=== PATIENT | male | born 1945 | race Caucasian/White ===

== ENCOUNTER 2016-10-21 07:09 | Inpatient (IN) | payer MEDICARE, OTHER ==
[~2016-10-21] VITALS: Ht 170.2 cm; Wt 120.0 kg
--- NOTE | ~2016-10-21 | ECH ---
Transthoracic Echocardiography Report (TTE) Demographics Patient Name RICO JAY Date of Study 10/23/2016 Patient Number [id number] Visit Number [id number] Date of 1945 Room Number 428 Accession Number [id number] Gender Male Age 70 year(s) Referring Nikhil Perez MD Bone Process Operator Cici Gomez Physician Kaitlin Sales RDCS, MD Physician Interpreting Mony COBIAN Padded Products Finisher Physician Jose Supervising Ordering Physician Nikhil Perez MD, MD/P Nurse Stress Drafter Structural Conclusions Contractility Score Summary Normal Left Ventricular contractility was noted. Summary Technically adequate exam. The estimated left ventricular ejection fraction is 60-65%. Mild concentric left ventricular hypertrophy. Trivial tricuspid regurgitation by color Doppler. There is mild pulmonary hypertension. The pulmonary pressure (RVSP) is 36 mmHg. Recommendation The patient was given the results of the exam during their hospital stay. Procedure Type of Study TTE procedure:Echo Complete SF. Procedure Date Date: 10/23/2016 Start: 08:24 Technical Quality: Adequate visualization Indications:Atrial Flutter, Hypertension and Diabetes. Appropriate Use Criteria: 9 Height: 67 inches Weight: 253 pounds BSA: 2.23 m Rhythm: Atrial flutter HR: 75 bpm BP: 128/72 mmHg M-Mode/2D Measurements LV Diastolic Dimension: 5.58 cm LV Systolic Dimension: 3.68 cm LV Septum Diastolic: 1.32 cm LV PW Diastolic: 1.31 cm AO Root Dimension: 2.95 cm Cardiac Output: 4.22 l/min LA Dimension: 3.9 cm Cardiac Index: 1.89 l/min*m RV Diastolic Dimension: 3.4 cm LA volume index: 22 ml/m LVOT: 2.1 cm LVOT VTI: 16.25 cm RV Base: 3.7 cm LV Stroke volume: 56.26 ml RV Mid: 2.2 cm LV Stroke volume index: 25.23 ml/m TAPSE: 1.8 cm TDI-S': 10 cm/s Doppler Measurements AV Peak Velocity: 1.6 m/s MV Peak E-Wave: 1.31 m/s AV Peak Gradient: 10.24 mmHg AV Mean Gradient: 5.91 mmHg MV P1/2t: 46.8 msec LVOT Peak Velocity: 0.85 m/s AV Area (Continuity):1.94 cm MV Area (PHT): 4.7 cm TR Velocity:2.85 m/s PV Peak Velocity: 0.85 m/s TR Gradient:32.53 mmHg PV Peak Gradient: 2.89 mmHg Estimated RAP:3 mmHg Estimated PASP: 35.53 mmHg Estimated RVSP: 36 mmHg E' Septal Velocity: 0.11 m/s E' Lateral Velocity: 0.11 m/s RA Area: 16.22 cm Findings Left Ventricle The left ventricle is normal in size . Mild concentric left ventricular hypertrophy. Diastolic function indeterminate due to patient's arrhythmia. Right Ventricle Normal right ventricle structure and function. Left Atrium Normal left atrial size. Right Atrium Normal right atrial size. Mitral Valve Normal mitral valve structure and function. Trivial mitral regurgitation by color Doppler. Aortic Valve Normal aortic valve structure and function. Tricuspid Valve Normal tricuspid valve structure and function. Trivial tricuspid regurgitation by color Doppler. There is mild pulmonary hypertension. The pulmonary pressure (RVSP) is 36 mmHg. Pulmonic Valve The pulmonic valve is not well visualized. Pericardial Effusion No evidence of pericardial effusion. Miscellaneous Visualized portions of the aortic root and ascending aorta appear normal in size. Pleural Effusion No evidence of pleural effusion. Contractility Score LV regional wall motion:(0-Non visualized 1-Normal 2-Hypokinesis 3-Akinesis 4-Dyskinesis 5-Aneurysm) Signature
--- NOTE | 2016-10-21 18:10 | ER ---
ADMIT: 10/21/2016 RM/LOC: 428 [facility] MR#: [id number] [id number] [place], [place] [address] JAY RICO Skye [address] [place] [address] Emergency Room Report SEX: M AGE: 70 : 1945 DATE: 10/21/2016 CHIEF COMPLAINT: Short of breath and chest pain. HISTORY OF PRESENT ILLNESS: The patient is a 70-year-old gentleman lives at home alone. He is wheelchair bound due to the fact he has had inclusion body myositis and has weakness in all 4 extremities, lower extremities worse than upper. He states that this morning he woke up, was feeling okay for a little while, but shortly after waking felt like he was lightheaded and noticed he was having some pressure in the center of his chest. He called EMS and was brought in for evaluation. He said he felt fine when he went to bed last night. He has not had any recent illness. REVIEW OF SYSTEMS: Ten-point review of systems done otherwise negative except as in HPI. PAST MEDICAL HISTORY: Significant for insulin-dependent diabetes, hypertension, hyperlipidemia, and inclusion body myositis. PAST SURGICAL HISTORY: Cholecystectomy. MEDICATIONS: See nurse's note. ALLERGIES: LISINOPRIL AND PENICILLIN. SOCIAL HISTORY: Lives at home alone. Does not smoke, drink, or use drugs. PHYSICAL EXAMINATION: See T-sheet. LABORATORY DATA: CBC shows hemoglobin 11.7, otherwise normal. Chemistries are normal. First set of cardiac enzymes was normal. BNP is 456. Chest x- ray shows nothing acute. EKG shows atrial flutter, rate of 74 with some PVCs. EMERGENCY DEPARTMENT COURSE: The patient was chest pain-free while in the ER ADMIT: 10/21/2016 RM/LOC: 428 [facility] MR#: [id number] [address] [address] RICO JAY [address] [place] [address] Emergency Room Report SEX: M AGE: 70 : 1945 but his EKG shows atrial flutter and I have reviewed numerous EKGs on the patient and there was no previous report of atrial fibrillation or atrial flutter in the past. The patient was still symptomatic with lightheadedness in the ER, but has not had any chest pain. At this point he will be brought in for further chest pain rule out, evaluation and management of his atrial flutter. I spoke to Dr. Preston as the patient normally sees Dr. Madrigal and the patient will be admitted for further workup. DIAGNOSES: 1. Chest pain. 2. Atrial flutter. 3. Lightheaded. Derrell Daley MD/ raymundo JOB #: [id number] CC: Barber Madrigal MD, Attending Physician Barber Madrigal MD, Family Physician
[2016-10-24] MEDS ORDERED: SIMETHICONE180 MG PO (14:14)
[2016-10-24] MEDS ORDERED: PRAVASTATIN SOD80 MG PO (14:14)
[2016-10-24] MEDS ORDERED: ZYLOPRIM-DPS300 MG PO (14:14)
[2016-10-24] MEDS ORDERED: DELTASONE DPS5 MG PO (14:15)
[2016-10-24] MEDS ORDERED: LEVOTHYROXINE100 MCG PO (14:15)
[2016-10-24] MEDS ORDERED: LASIX DPS40 MG PO (14:15)
[2016-10-24] MEDS ORDERED: ALENDRONATE SOD35 MG PO (14:15)
[2016-10-24] MEDS ORDERED: TYLENOL325 MG PO (14:16)
[2016-10-24] MEDS ORDERED: RA CALCIUM 6001 EAC1 PO (14:16)
[2016-10-24] MEDS ORDERED: VITAMIN D-32000 UNI1 PO (14:16)
[2016-10-24] MEDS ORDERED: NOVOLOG100 UNIT/2 SQ ×2 (14:18→14:22)
[2016-10-24] MEDS ORDERED: HUMULIN N100 UNIT/1 SQ (14:19)
[2016-10-24] MEDS ORDERED: METOPROLOL TART25 MG PO (14:19)
[2016-10-24] MEDS ORDERED: COZAAR DPS25 MG PO (14:19)
[2016-10-24] MEDS ORDERED: ELIQUIS5 MG PO (14:20)
[2016-10-24] MEDS ORDERED: ANTIVERT-DPS25 MG PO (14:20)
[2016-10-24] MEDS ORDERED: PRILOSEC DPS20 MG PO (14:20)
[2016-10-24] MEDS ORDERED: OMEGA-3 DPS1000 MG PO (14:20)
[2016-10-24] MEDS ORDERED: FLOMAX DPS0.4 MG PO (14:20)
--- NOTE | 2016-10-24 14:51 | NUR ---
Patient is a current [facility] patient.
--- NOTE | 2016-11-08 14:15 | CO ---
ADMIT: 10/21/2016 RM/LOC: 428 [facility] MR#: [id number] [address] [facility] [address] [place], [place] [address] RICO JAY [address] [place] [address] Consultation SEX: M AGE: 70 : 1945 DATE OF CONSULTATION: 10/21/2016 ATTENDING PHYSICIAN: Barber Madrigal MD CONSULTING PHYSICIAN: Padilla Tejeda MD REASON FOR CONSULTATION: Atrial flutter, near syncope. HISTORY OF PRESENT ILLNESS: Mr. Jay is a pleasant 70-year-old, white male who presents today to the ER with some lightheadedness and near syncope. He has never experienced any symptoms like this. He lives at home alone with a history of inclusion body myositis. He has no known history of coronary disease. There is no family history of coronary disease. He denies any palpitations or skipped beats. He denies any weight gain, weight loss. No fevers or chills. He is wheelchair-bound because of his myositis. PAST MEDICAL HISTORY: Includes inclusion body myositis and Davis's palsy. MEDICATIONS: Unknown at this time. ALLERGIES: INCLUDE PENICILLIN. FAMILY HISTORY: There is no family history of coronary disease to his knowledge. 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 He is a nonsmoker. Lives at home alone. REVIEW OF SYSTEMS: A full 10-point review of systems was obtained and deemed to be negative except for the pertinently dictated positive. PHYSICAL EXAMINATION: VITAL SIGNS: His blood pressure is 134/67 with a pulse rate in the 60s, temp is 97.1, his weight is 251 pounds. GENERAL: He is a pleasant, well-nourished, and well-developed white male, in no acute distress. Alert and oriented x3. NECK: Shows brisk carotid upstrokes. No JVD. No bruit. CHEST: Clear. HEART: Regular. ABDOMEN: Soft. EXTREMITIES: Showed no cyanosis, clubbing, edema. MUSCULOSKELETAL: Appears somewhat diminished range of motion because of his inclusion body myositis. Same with his neurologic status. LABORATORY AND ANCILLARY DATA: EKG today shows atrial flutter with variable block, but well rate controlled. His creatinine is 0.8, potassium 3.8, magnesium is 2.5. CK is 215, MB is 8.7, troponin is 0.02. ProBNP is 456. White ADMIT: 10/21/2016 RM/LOC: 428 [facility] MR#: [id number] [address] [address]ICO [address] [place] [address] Consultation SEX: M AGE: 70 : 1945 blood cell count of 8.9, hemoglobin 11.7, and a platelet count of 177,000. ASSESSMENT AND PLAN: 1. Atrial flutter, new diagnosis. 2. Inclusion body myositis. 3. Vertigo. 4. Obstructive sleep apnea. We will go ahead and continue to monitor his rate control right now. We will start him on anticoagulation. No need for AV leta agent as he is well rate controlled. Blood pressure is stable. We will get an echocardiogram with or without a potential cardioversion early this week depending on his symptoms and his rate control on tele. Padilla Tejeda MD/ raymundo JOB #: [id number] CC: Barber Madrigal MD, Attending Physician Barber Madrigal MD, Family Physician
--- NOTE | 2016-11-13 10:39 | HP ---
ADMIT: 10/21/2016 RM/LOC: 428 [facility] MR#: [id number] [address] [facility] [address] [place], [place] [address] RICO JAY [address] [place] [address] History and Physical SEX: M AGE: 70 : 1945 DATE OF SERVICE: CHIEF COMPLAINT: Dizziness and chest pain. HISTORY OF PRESENT ILLNESS: This is a 70-year-old male, who normally follows at the [facility] and with Dr. Barber Madrigal who presented to emergency room with dizziness and chest pain. He was in his usual state of health yesterday. He is living at home by himself, but does have some people come in and help him transfer. At any rate, he woke up at 6 o'clock this morning, had significant dizziness, which he described as true vertigo with a spinning sensation. It was worse when he looked in certain positions. Also at that time noted that he was having some substernal chest tightness. It did not radiate. It was not associated with shortness of breath but was associated with diaphoresis. Also, he was nauseated, he was dry heaving. This is not certain if this was secondary to chest pain or dizziness. At any rate, they called the squad who came in. Workup in the emergency room did reveal new onset atrial flutter. His 1st set of cardiac enzymes have been negative and his chest pain has been resolved. However, when they sat him up for a sip of water, he got extremely vertiginous again and then when I was being with him and did my exam looking in his ears, rotating his head, reproduced his vertigo as well. Because of the new onset of atrial fibrillation and severe dizziness, we are going to admit. PAST MEDICAL HISTORY: Remarkable for diabetes mellitus type 2, hypercholesterolemia, morbid obesity, inclusion body myositis, obstructive sleep apnea, BPH with urinary retention and now chronic indwelling Johnson catheter, hypothyroidism, and gastroesophageal reflux disease. PAST SURGICAL HISTORY: 1. Penile abscess drainage. 2. Cholecystectomy. 3. Knee arthroscopies. CURRENT MEDICATIONS: 1. Questran 4 g daily. 2. Simethicone 180 mg t.i.d. 3. Pravastatin 80 mg at bedtime. 4. Allopurinol 300 mg daily. 5. Furosemide 40 mg daily. 6. Levothyroxine 100 mg daily. 7. Prednisone 5 mg two tabs daily. 8. Alendronate 35 mg every week. 9. Aspirin 325 mg daily. 10.Acetaminophen 650 mg p.r.n. 11.Calcium daily. 12.Vitamin D 2 daily. 13.NovoLog uncertain dose. 14.Losartan 25 mg daily. 15.Metoprolol 25 mg b.i.d. ADMIT: 10/21/2016 RM/LOC: 428 [facility] MR#: [id number] [address] [address] [place] [address] History and Physical SEX: M AGE: 70 : 1945 16.Snyder-3 1000 mg daily. 17.Omeprazole 20 mg daily. 18.Tamsulosin 0.4 mg daily. ALLERGIES: ZESTRIL AND PENICILLIN. FAMILY HISTORY: Father of stomach cancer. Mother with diabetes at the age of 91. Sister with breast cancer. SOCIAL HISTORY: Does not smoke or drink alcohol. He lives alone. He could not bear weight. Cannot transfer, but he does have some friends who come in and help him transfer from bed to wheelchair. REVIEW OF SYSTEMS: GENERAL: No fevers or chills. HEENT: No headaches, blurry vision, or double vision. CARDIAC: He does have chest pain but no shortness of breath. PULMONARY: No shortness of breath. GI: No nausea, vomiting, does have chronic diarrhea. : No dysuria, urgency, or frequency. ENDOCRINE: No polyuria, polydipsia. PSYCH: No depression. INTEGUMENTARY: No new rashes. All others are negative. PHYSICAL EXAMINATION: VITAL SIGNS: Blood pressure is 147/88, pulse 75, respirations 18, he is afebrile, O2 saturation is 97% on room air. GENERAL: He is in no acute distress. He is alert, oriented. HEENT: Pupils are reactive. He does have nystagmus and TMs are clear bilateral without erythema or bulging. There is no cerumen. External pinnae are normal. Clear nasal mucosa. Clear oropharynx. Moist mucous membranes. NECK: Soft and supple. LUNGS: Clear to auscultation with normal respiratory effort. HEART: Irregular. ABDOMEN: Soft, it is nontender. EXTREMITIES: No cyanosis. No clubbing. SKIN: No rashes. NEUROLOGIC: Cranial nerves II through XII grossly intact except for the generalized weakness from his myositis. LAB AND X-RAY DATA: White count of 8900, hemoglobin 11.7, and platelets 177,000. Sodium 143, potassium 3.8, chloride 104, CO2 of 30, BUN 44, creatinine 0.8, glucose 111, calcium 8.8, total bilirubin is 0.5, total protein 6.7, albumin 3.4, alkaline phosphatase 65, AST 16, ALT 24, magnesium 2.5, CK 215, MB 8.7, relative index 4.0, troponin I is 0.02. ProBNP was 456. ADMIT: 10/21/2016 RM/LOC: 428 [facility] MR#: [id number] [address] [address] RICO JAY [facility] [place] [address] History and Physical SEX: M AGE: 70 : 1945 ASSESSMENT: 1. Chest pain. 2. New onset atrial flutter. 3. Vertigo. 4. Diabetes mellitus type 2. 5. Morbid obesity. 6. Inflammatory/inclusion body myositis. 7. Obstructive sleep apnea. 8. Urinary retention with chronic indwelling Johnson catheter. PLAN: He will be admitted to [facility]. We will check serial cardiac enzymes, IM Zofran and meclizine for the dizziness. BRIAN will be consulted. Segundo Preston MD/ raymundo JOB #: [id number] CC: Barber Madrigal MD, Attending Physician Barber Madrigal MD, Family Physician
--- NOTE | 2016-11-27 12:06 | DS ---
ADMIT: 10/21/2016 RM/LOC: 428 [facility] MR#: [id number] [address] [facility] [address] [place], [place] [address] RICO JAY [address] [place] [address] General Discharge Summary SEX: M AGE: 70 : 1945 ADMISSION DATE: 10/21/2016 DISCHARGE DATE: 10/23/2016 INDICATION FOR HOSPITALIZATION: Rico is a 70-year-old male who [facility], who is admitted to [facility] through the emergency room with chest pain and dizziness. ER assessment showed new-onset atrial fibrillation/flutter. Cardiac enzymes and routine labs were obtained, and he was admitted for further evaluation and management of new onset of atrial fibrillation with severe dizziness felt to be secondary to labyrinthitis by Dr. Preston on admission. Please see his admission H and P for further details regarding his history of present illness, past medical history, physical exam, and assessment at the time of hospitalization. HOSPITAL COURSE: On admission, Valium was ordered for his dizziness. IV fluids and antiemetics were ordered. EKGs, cardiac enzymes, Accu-Chek monitoring with sliding scale insulin, and routine labs were obtained. Additionally, meclizine was given routinely for his vertigo. His home diabetes cares were continued. [facility] was formally consulted given his chest pain and risk factors with his atrial fibrillation/flutter. He was initially placed on heparin drip and later switched to Eliquis. Echocardiogram was ordered. Cardiology rounded routinely. Aspirin was discontinued on October 23, and Cardiology felt it was okay to send him home, and he was discharged to home later that day. DISCHARGE MEDICATIONS: Please include a copy of his discharge medication list from his MAR at this place. Of note, he was on Eliquis 5 mg b.i.d., and aspirin was held. He was given Antivert for his labyrinthitis. FOLLOWUP AND DIET: He was to follow up with his [facility] provider in a week and continue with his diabetic diet. LABORATORY AND X-RAY DATA: Include; on October 21, white count 8.9, hemoglobin 11.4, and platelet count 177,000. On October 21, sodium 143, potassium 3.8, BUN 44, and creatinine 0.8 with glucose 111. AST of 16 and ALT of 24. Cholesterol on October 22 was 89 with triglycerides of 92, HDL 43, and LDL 28. CPKs were 215, 198, and 202 on October 21. MBs of 8.7, 10.1, and 9.1. Troponin I's were all normal at 0.020, 0.16, and 0.23. Sugars were monitored. Hemoglobin A1c on October 22 was 6.9. TSH was normal at 0.793. Chest x-ray on admission showed no acute changes. Echocardiogram on October 23 shows an ejection fraction of 60% to 65% with mild left ventricular hypertrophy and mild pulmonary hypertension. FINAL DISCHARGE DIAGNOSES: 1. New onset of atrial fibrillation/flutter. ADMIT: 10/21/2016 RM/LOC: 428 [facility] MR#: [id number] [address] [address] RICO JAY [address] [place] [address] General Discharge Summary SEX: M AGE: 70 : 1945 2. Mild left ventricular hypertrophy. 3. Labyrinthitis. 4. Diabetes mellitus type 2. 5. Atypical chest pain. 6. Morbid obesity. 7. Inclusion body myositis. 8. Obstructive sleep apnea. 9. Urinary retention with chronic indwelling Johnson catheter. PROCEDURES: Include serial cardiac enzymes, initiation of anticoagulation, echocardiogram, and medical management of his labyrinthitis. Please see his hospital record for further details. Barber Madrigal MD/ raymundo JOB #: [id number] CC: Barber Madrigal MD, Attending Physician Barber Madrigal MD, Family Physician
== END 2016-10-23 17:08 | disposition home health service (06) | DRG 310 ==
LOC: ER 07:09 → 4PCU 08:50
PROVIDERS: ADMIT Family Medicine
DX: I48.92 Unspecified atrial flutter (principal); E11.649 Type 2 diabetes mellitus with hypoglycemia without coma; G72.41 Inclusion body myositis [IBM]; I48.91 Unspecified atrial fibrillation; I10 Essential (primary) hypertension; E78.5 Hyperlipidemia, unspecified; H83.09 Labyrinthitis, unspecified ear; E78.00 Pure hypercholesterolemia, unspecified; E66.9 Obesity, unspecified; Z68.39 Body mass index [BMI] 39.0-39.9, adult; G47.33 Obstructive sleep apnea (adult) (pediatric); N40.1 Benign prostatic hyperplasia with lower urinary tract symptoms; R33.9 Retention of urine, unspecified; E03.9 Hypothyroidism, unspecified; K21.9 Gastro-esophageal reflux disease without esophagitis; Z79.52 Long term (current) use of systemic steroids; Z79.82 Long term (current) use of aspirin; Z99.3 Dependence on wheelchair; Z79.4 Long term (current) use of insulin